=== PATIENT | female | born 1935 | race African-American/Black ===

== ENCOUNTER 2022-05-09 14:15 | Inpatient (IN) | payer OTHER, MEDICAID ==
[~2022-05-09] VITALS: Ht 165.1 cm; Wt 81.6 kg
[~2022-05-09 14:15] MED LIST: AMLO2.5T45 PO; ASPI-1073 PO; ATEN-42 PO; CHOL100046 PO; LEVO25TA7 PO; OMEG1CAP17 PO; SPIR25TA6 PO
[2022-05-09 16:05] LABS: BASOPHILS % 0.2 % (0.0-2.0); EOSINOPHILS % 0.7 % (0.0-5.0); HEMOGLOBIN. 12.8 g/dL (12.0-16.0); LYMPHOCYTES % 21.7 % (20.0-50.0); MEAN CORPUSCULAR HEMOGLOBIN 29.8 pg (28.0-32.0); MEAN CORPUSCULAR VOLUME 93.3 fL (81.0-99.0); MEAN PLATELET VOLUME 7.4 fl (7.4-10.4); MONOCYTES % 6.1 % (2.0-8.0); NEUTROPHILS % 71.3 % (40.0-76.0); PLATELET 230 x1000/uL (130-400); RED BLOOD CELL COUNT 4.29 mill/uL (4.2-5.4); RED CELL DISTRIBUTION WIDTH 14.1 % (11.6-14.6)
[2022-05-09 16:14] LABS: CHLORIDE 107 mEq/L (98-107)
[2022-05-09] MEDS ORDERED: DIPHENHYDRAMINE 50MG/ML VIAL IV ONE (19:30)
[2022-05-09] MEDS ORDERED: ACETAMINOPHEN 325MG TABLET PO ONE (19:30)
[2022-05-10] MEDS ORDERED: ACETAMINOPHEN 325MG TABLET PO NR (01:30)
[2022-05-10] MEDS ORDERED: DIPHENHYDRAMINE 50MG/ML VIAL IV NR (01:30)
[2022-05-10] MEDS ORDERED: AMLODIPINE 5MG TABLET PO SCH (11:45)
[2022-05-10] MEDS ORDERED: IPRATROPIUM/ALBUTEROL 0.5-3(2.5)MG/3ML NEB HHN PRN (12:00)
[2022-05-10] MEDS ORDERED: ONDANSETRON HCL 4MG/2ML INJ IV PRN (12:00)
[2022-05-10] MEDS ORDERED: ACETAMINOPHEN 325MG TABLET PO PRN (12:00)
[2022-05-10] MEDS: ASPIRIN 81MG EC TABLET PO SCH (12:57)
[2022-05-10] MEDS: LEVOTHYROXINE SODIUM 25MCG TABLET PO SCH (12:58)
[2022-05-10 13:00] VITALS: BP 160/69
[2022-05-10] MEDS: METOPROLOL TARTRATE 25MG TABLET PO SCH ×2 (14:30→22:49)
[2022-05-10 16:00] VITALS: BP 152/60
[2022-05-10] MEDS: ENOXAPARIN 40MG/0.4ML SYR SUBCUT SCH (16:42)
[2022-05-10 17:37] LABS: CREATINE KINASE MB FRACTION 1.8 ng/mL (0.5-3.6)
[2022-05-10] MEDS ORDERED: IPRATROPIUM BROMIDE (0.02%) 0.5MG/2.5ML NEB HHN PRN (18:15)
[2022-05-10] MEDS ORDERED: ALBUTEROL (0.083%) 2.5MG/3ML NEB HHN PRN (18:15)
[2022-05-10 20:00] VITALS: BP 137/59
[2022-05-10] MEDS: ATORVASTATIN CALCIUM 40MG TABLET PO SCH (21:28)
[2022-05-11] VITALS: BP 167/59
[2022-05-11 01:21] LABS: CREATINE KINASE MB FRACTION 1.6 ng/mL (0.5-3.6)
[2022-05-11 02:17] LABS: CLARITY URINE CLEAR (CLEAR); COLOR URINE YELLOW (YELLOW); KETONES URINE NEGATIVE (NEGATIVE); LEUKOCYTE ESTERASE URINE NEGATIVE (NEGATIVE); NITRITE URINE NEGATIVE (NEGATIVE); OCCULT BLOOD URINE NEGATIVE (NEGATIVE); PROTEIN URINE NEGATIVE (NEGATIVE); SPECIFIC GRAVITY URINE 1.007 (1.005-1.030); UROBILINOGEN URINE 0.2 E.U./dL (0.2-1.0)
[2022-05-11 02:37] LABS: HEPATITIS B SURFACE ANTIGEN NEGATIVE
[2022-05-11 04:00] VITALS: BP 141/51
[2022-05-11 08:00] VITALS: BP 149/60
[2022-05-11 08:50] LABS: PROTHROMBIN TIME 11.2 sec (9.6-11.0)
[2022-05-11] MEDS: METOPROLOL TARTRATE 25MG TABLET PO SCH ×2 (09:00→21:00)
[2022-05-11] MEDS: LEVOTHYROXINE SODIUM 25MCG TABLET PO SCH (09:00)
[2022-05-11] MEDS: ASPIRIN 81MG EC TABLET PO SCH (09:00)
[2022-05-11] MEDS ORDERED: NICARDIPINE 100MCG/ML 10ML VIAL (CATH LAB) IV ONE (11:09)
[2022-05-11] MEDS ORDERED: NITROGLYCERIN 50MCG/ML 10ML VIAL (CATH LAB) IV ONE (11:09)
[2022-05-11 12:00] VITALS: BP 117/57
[2022-05-11] MEDS ORDERED: LIDOCAINE HCL/PF 1% 10 MG/ML 5ML VIAL ONE (12:24)
[2022-05-11] MEDS ORDERED: HEPARIN 1000 UNITS/ML 10ML ONE (12:25)
[2022-05-11] MEDS ORDERED: DIPHENHYDRAMINE 50MG/ML VIAL ONE (12:25)
[2022-05-11] MEDS ORDERED: VERAPAMIL HCL 2.5 MG/1 ML 2ML VIAL IV ONE (12:25)
[2022-05-11] MEDS ORDERED: IODIXANOL 320MG/ML 100 ML BOTTLE IV ONE (12:26)
[2022-05-11] MEDS ORDERED: MIDAZOLAM HCL 2 MG/2 ML VIAL ONE (12:45)
[2022-05-11] MEDS ORDERED: FENTANYL CITRATE/PF 50MCG/ML 2ML VIAL ONE (12:45)
[2022-05-11] MEDS: ENOXAPARIN 40MG/0.4ML SYR SUBCUT SCH (13:00)
[2022-05-11] MEDS ORDERED: ACETAMINOPHEN 325MG TABLET PO PRN (14:00)
[2022-05-11] MEDS ORDERED: ATROPINE SULFATE 1MG/10ML SYR IV PRN (14:00)
[2022-05-11] MEDS ORDERED: SODIUM CHLORIDE 0.45% 400 ML IV ONE (14:30)
[2022-05-11 17:50] VITALS: BP 128/53
[2022-05-11 20:00] VITALS: BP 144/41
[2022-05-11] MEDS: ATORVASTATIN CALCIUM 40MG TABLET PO SCH (21:36)
[2022-05-12] VITALS: BP 132/54
[2022-05-12 04:00] VITALS: BP 126/45
[2022-05-12 07:03] LABS: BASOPHILS % 0.4 % (0.0-2.0); EOSINOPHILS % 2.2 % (0.0-5.0); HEMATOCRIT. 37.8 % (36.0-48.0); HEMOGLOBIN. 12.7 g/dL (12.0-16.0); LYMPHOCYTES % 38.6 % (20.0-50.0); MEAN CORPUSCULAR HEMOGLOBIN 31.1 pg (28.0-32.0); MEAN CORPUSCULAR VOLUME 92.4 fL (81.0-99.0); MEAN PLATELET VOLUME 7.4 fl (7.4-10.4); MONOCYTES % 7.6 % (2.0-8.0); NEUTROPHILS % 51.2 % (40.0-76.0); PLATELET 208 x1000/uL (130-400); RED BLOOD CELL COUNT 4.09 mill/uL (4.2-5.4); RED CELL DISTRIBUTION WIDTH 13.4 % (11.6-14.6)
[2022-05-12 07:58] LABS: CHLORIDE 106 mEq/L (98-107)
[2022-05-12 08:00] VITALS: BP 146/40
[2022-05-12] MEDS ORDERED: AMLODIPINE 10MG TABLET PO SCH (09:00)
[2022-05-12] MEDS: LEVOTHYROXINE SODIUM 25MCG TABLET PO SCH (10:54)
[2022-05-12] MEDS: ASPIRIN 81MG EC TABLET PO SCH (10:58)
[2022-05-12] MEDS: METOPROLOL TARTRATE 25MG TABLET PO SCH (11:00)
[2022-05-12 12:00] VITALS: BP 121/73
[2022-05-12] MEDS ORDERED: ISOS30TA91 PO (12:38)
[2022-05-12] MEDS ORDERED: METO25TA6 PO (12:38)
[2022-05-12] MEDS ORDERED: LEVO25TA7 PO (12:38)
[2022-05-12] MEDS ORDERED: AMLO10TA80 PO (12:38)
[2022-05-12] MEDS ORDERED: LIP40 PO (12:38)
[2022-05-12] MEDS: ENOXAPARIN 40MG/0.4ML SYR SUBCUT SCH (13:40)
[2022-05-13] MEDS ORDERED: ISOSORBIDE MONONITRATE 30MG TABLET SR 24HR PO SCH (09:00)
== END 2022-05-12 15:36 | disposition home or self-care (01) | DRG 287 ==
LOC: ER 14:27 → MICUSO 17:40 → 7EST 05-10 13:54
PROVIDERS: ADMIT Internal Medicine; ATTEND Internal Medicine
PROC: 4A023N7 Measurement of Cardiac Sampling and Pressure, Left Heart, Percutaneous Approach (ICD-10-PCS; principal; 2022-05-11)
PROC: B211YZZ Fluoroscopy of Multiple Coronary Arteries using Other Contrast (ICD-10-PCS; 2022-05-11)
PROC: B215YZZ Fluoroscopy of Left Heart using Other Contrast (ICD-10-PCS; 2022-05-11)
DX: I25.110 Atherosclerotic heart disease of native coronary artery with unstable angina pectoris (principal); G45.9 Transient cerebral ischemic attack, unspecified; E03.9 Hypothyroidism, unspecified; I10 Essential (primary) hypertension; Z20.822 Contact with and (suspected) exposure to COVID-19; I16.0 Hypertensive urgency; Z95.5 Presence of coronary angioplasty implant and graft; Z86.73 Personal history of transient ischemic attack (TIA), and cerebral infarction without residual deficits; Z79.899 Other long term (current) drug therapy
CPT/HCPCS: 36415; 71045; 80048; 80053; 80061; 81003; 82553; 83036; 83880; 84439; 84443; 84484; 85025; 85379; 86803; 87340; 87426; 93005; 93306; 93458; 93880; 99285; C1769; C1887; C1893; J1200; J1644; J1650; J2250; J3010; J3490; Q9967